=== PATIENT | female | born 1990 | race Caucasian/White ===

== ENCOUNTER 2017-07-03 21:59 | Inpatient (IN) | payer BC, MEDICAID, OTHER ==
[~2017-07-03] VITALS: Ht 154.9 cm; Wt 67.0 kg
[~2017-07-03 21:59] MED LIST: IBUP600 PO
[2017-07-03] MEDS ORDERED: VITA1000 PO (22:36)
[2017-07-03] MEDS ORDERED: MULTTAB67 PO (22:36)
[2017-07-03 23:39] LABS: AMORPHOUS SEDIMENT, URINE RARE; BACTERIA, URINE OCC /hpf; BILIRUBIN, URINE NEG (NEG); BLOOD, URINE NEG (NEG); GLUCOSE,URINE NEG (NEG); KETONE, URINE NEG (NEG); NITRITE,URINE NEG (NEG); SQUAMOUS EPITHELIAL CELL URINE 17 /hpf (0-5); URINE COLOR YELLOW (YELLW/STRAW); URINE LEUKOCYTE ESTERASE LARGE (NEG)
[2017-07-04] VITALS (56 sets, daily range): BP systolic 82–135; BP diastolic 43–92; PULSE 70–103; RESP 16–18; TEMP 97.9–98.7; O2SAT 97–99
[2017-07-04] MEDS ORDERED: LACTATED RINGER'S 1000 ML INJ 1,000 ML IV PRN (00:05)
[2017-07-04] MEDS ORDERED: ONDANSETRON HCL 4 MG/2 ML VIAL IV PUSH PRN (00:15)
[2017-07-04] MEDS ORDERED: MINERAL OIL 10 ML VIAL TOPICAL PRN (00:15)
[2017-07-04] MEDS ORDERED: OXYTOCIN 30 UNITS-500ML PREMIX 500 ML IV ONE ×2 (00:15→08:30)
[2017-07-04] MEDS ORDERED: CITRIC ACID-SODIUM CITRATE LIQ 30 ML UDC PO SCH (00:15)
[2017-07-04] MEDS ORDERED: SODIUM CHLORID 0.9% 500 ML INJ 500 ML IV PRN (00:15)
[2017-07-04] MEDS ORDERED: OXYTOCIN 30 UNITS-500ML PREMIX 500 ML IV PRN (00:15)
[2017-07-04] MEDS ORDERED: LIDOCAINE HCL 1% 50 ML VIAL I-DERMAL PRN (00:15)
[2017-07-04] MEDS ORDERED: LIDOCAINE HCL 1% 50 ML VIAL INFIL PRN (00:15)
--- NOTE | 2017-07-04 00:15 | PD ---
HPI Chief Complaint LOF Date Seen: Jul 04, 2017 Time Seen: 00:09 Travel History International Travel<30 Days: No Contact w/Intl Traveler<30Days: No Known Affected Area: No History of Present Illness HPI Pt is a 27y/o @ 38.6wks. She has PNC with HOGA. She reports a gush of fluid at 9:15pm (clear) with continued leaking. Occasional ctx. +FM. No VB. She is GBS+. Weeks Gestation: 38 Para: 2 : 4 History Past Medical History Narrative Medical "neurofibromatosis" - pt states she has never formally been dx'd but both of her brothers have it (one with [employer] involvement) and she has cutaneous fibromas so assumes she has it Obstetric History Obstetric History x2 D&C x1 Past Surgical History Narrative Surgical D&C Family History Family History: neurofibromatosis in both brothers Social History Alcohol Use: No Tobacco Use: Yes (/2 PPD) Substance Abuse: No Allergies-Medications (Allergen,Severity, Reaction): Coded Allergies: penicillin G (Unverified Allergy, Mild, 07/03/17) Home Meds Reported Medications Multiple Vitamin (Multiple Vitamin) 1 Tab, 1 TAB PO DAILY for Nutritional Supplement, TAB 0 Refills 07/03/17 Cholecalciferol (Vitamin D-1000) 1,000 Unit Tab, 4000 UNITS PO DAILY for Nutritional Supplement, #1 BOTTLE 0 Refills 07/03/17 Discontinued Scripts Ibuprofen (Motrin 600 Mg Tab) 600 Mg Tab, 600 MG PO Q6H Y for CRAMPING for 30 Days, TAB Prov:Adrienne Martinez MD, R3 12/30/15 Review of Systems Except as stated in HPI: all other systems reviewed are Neg Physical Exam Narrative General: well developed, well nourished, no acute distress HEENT: normocephalic atraumatic, extraocular movements intact, neck supple Abdomen: soft, gravid, nontender, nondistended Uterus: fundus term Extremities: full range of motion Skin: normal coloration, no rashes, no suspicious skin lesions noted Neurologic: cranial nerves 2-12 grossly intact, normal muscle tone, normal gait Psychiatric: normal mood and affect, appropriate FHTs: 130s, +accels, no decels, moderate variability, reactive [place]: irritable Cvx: 4/60/-3, large ?fibroma at anterior mons extending to R labia Data Data Vital Signs Reviewed: Yes Orders Orders Ob (2e) Additional Admit Info (07/03/17 22:46) Urinalysis - C+S If Indicated (07/03/17 23:29) Drug Screen, Random Urine (07/03/17 23:29) Urine Culture (07/03/17 22:25) Vital Signs (Adult) .ON ADMISSION (07/04/17 00:05) ^ Labor Status (07/04/17 00:05) ^ Non Stress Test (07/04/17 00:05) Pamg-1 Test .ONCE (07/04/17 00:05) Admit To Inpatient (07/04/17 ) Vital Signs (Adult) .Per protocol (07/04/17 00:05) Heart (07/04/17 00:05) Amnioinfusion (07/04/17 00:05) Urinary Catheter Management .ONCE (07/04/17 00:05) Diet Liquid (07/04/17 Breakfast) Lactated Ringer's 1000 Ml Inj (Lr 1000 M (07/04/17 00:05) Lactated Ringer's 1000 Ml Inj (Lr 1000 M (07/04/17 00:05) Sodium Chlorid 0.9% 500 Ml Inj (Ns 500 M (07/04/17 00:15) Sodium Chlor 0.9% 1000 Ml Inj (Ns 1000 M (07/04/17 00:25) Lidocaine 1% Inj (50 Ml) (Xylocaine 1% I (07/04/17 00:15) Citric Acid-Sodium Citrate Liq (Bicitra (07/04/17 00:15) Ondansetron Inj (Zofran Inj) (07/04/17 00:15) Fentanyl Inj (Fentanyl Inj) (07/04/17 00:15) Fentanyl Inj (Fentanyl Inj) (07/04/17 00:15) Penicillin G Potassium Inj (Pfizerpen-G (07/04/17 00:15) Penicillin G Potassium Inj (Pfizerpen-G (07/04/17 04:15) Complete Blood Count With Diff (07/04/17 00:05) Hold Clot (07/04/17 00:05) Abo/Rh Blood Type (07/04/17 00:05) Drug Screen, Random Urine (07/04/17 00:05) Resp Oxygen Non Rebreathe Mask (07/04/17 ) ^ Epidural / Intrathecal Infus (07/04/17 00:05) Oxytocin 30 Units-500ml Premix (Pitocin (07/04/17 00:15) Lidocaine 1% Inj (50 Ml) (Xylocaine 1% I (07/04/17 00:15) Light Mineral Oil (Muri-Lube Oil) (07/04/17 00:15) Inpatient Certification (07/04/17 ) Specimen To Be Collected PRN (07/04/17 00:05) ^ Non Stress Test (07/04/17 00:05) Response To Medication .Post New Med Administration, Reaction (07/04/17 00:05) ^ Discontinue Medication (07/04/17 00:05) Oxytocin 30 Units-500ml Premix (Pitocin (07/04/17 00:15) Group B Strep: Positive Labs Laboratory Tests Test 07/03/17 22:25 Urine Color YELLOW Urine Turbidity CLOUDY Urine pH 8.0 Urine Specific [place] 1.013 Urine Protein NEG Urine Glucose (UA) NEG Urine Ketones NEG Urine Occult Blood NEG Urine Nitrite NEG Urine Bilirubin NEG Urine Urobilinogen LESS THAN 2.0 Urine Leukocyte Esterase LARGE Urine RBC 2 Urine WBC 32 Urine Squamous Epithelial Cells 17 Urine Amorphous Sediment RARE Urine Bacteria OCC Microscopic Urinalysis Comment CULTURE INDICATED Urine Opiates Screen NEG Urine Barbiturates Screen NEG Urine Amphetamines Screen NEG Urine Benzodiazepines Screen NEG Urine Cocaine Screen NEG Urine Cannabinoids Screen NEG Date/Time Source Procedure Growth Status 07/03/17 22:25 Urine Clean Catch Urine Culture Pending Received MDM Plan 27y/o @ 38.6wks with PROM -- admit to L&D -- pitocin augmentation -- GBS+, PCN ordered (pt reports she may have an allergy since her father has a PCN allergy, but she has taken amoxicillin previously) -- CLD, epidural/jason PRN Dispo: Dr. Kaplan ([facility]) notified of pt status and plan of care. He will assume care of the pt. Courtesy orders placed. Diagnosis Diagnosis: Primary Impression: 38 weeks gestation of Additional Impressions: GBS (group B Streptococcus carrier), +RV culture, currently Neurofibromatosis Tobacco use during Thor,Ameigh Verderosa MD Jul 04, 2017 00:15
[2017-07-04] MEDS: LACTATED RINGER'S 1000 ML INJ 1,000 ML IV SCH ×3 (00:25→05:23)
[2017-07-04] MEDS ORDERED: SODIUM CHLOR 0.9% 1000 ML INJ 1,000 ML IV PRN (00:25)
[2017-07-04 00:49] LABS: AUTOMATED NEUTROPHIL # 13.3 TH/MM3 (1.8-7.7); BASOPHIL # 0.1 TH/MM3 (0-0.2); BASOPHIL % 0.4 % (0.0-2.0); EOSINOPHIL # 0.2 TH/MM3 (0-0.4); HEMOGLOBIN 11.8 GM/DL (11.6-15.3); LYMPH % 16.7 % (9.0-44.0); LYMPHOCYTE # 2.9 TH/MM3 (1.0-4.8); MEAN CELL VOLUME 86.7 FL (80.0-100.0); MEAN CORPUSCULAR HEMOGLOBIN 29.3 PG (27.0-34.0); MEAN CORPUSCULAR HGB CONC 33.8 % (32.0-36.0); MEAN PLATELET VOLUME 8.1 FL (7.0-11.0); MONO % 6.2 % (0.0-8.0); MONOCYTE # 1.1 TH/MM3 (0-0.9); NEUT % 75.7 % (16.0-70.0); PLATELET COUNT 209 TH/MM3 (150-450); RED BLOOD COUNT 4.03 MIL/MM3 (4.00-5.30); RED CELL DISTRIBUTION WIDTH 14.4 % (11.6-17.2); WHITE BLOOD COUNT 17.6 TH/MM3 (4.0-11.0)
[2017-07-04] MEDS ORDERED: PENICILLIN G POTASSIUM INJ 5,000,000 UNITS in SODIUM CHLORIDE 0.9% INJ 100 ML IV ONE (01:00)
[2017-07-04] MEDS ORDERED: fentaNYL 2MCG-BUPIV 0.125% INJ 100 ML ONE (02:24)
[2017-07-04] MEDS ORDERED: PENICILLIN G POTASSIUM INJ 2,500,000 UNITS in SODIUM CHLORIDE 0.9% INJ 100 ML IV SCH (05:00)
--- NOTE | 2017-07-04 07:51 | PD.OB.DELI ---
Weeks gestation: 38 Gest age assessed date: Jul 03, 2017 Pt started active labor?: Yes Active labor start date: Jul 03, 2017 Medical induction of labor?: No Artificial rupture of membrane: No Anesthesia: Epidural Episiotomy: None Vaginal Delivery: Normal Nuchal Cord: None Delayed cord clamping (45 sec): Yes Infant: Female Delivery date: Jul 04, 2017 Delivery time: 07:20 One Minute : 9 Five Minute : 9 Weight: 6/15 Placenta: Spontaneous delivery, Intact, 3 vessel cord Laceration: 1 deg Estimated blood loss: 300 Additional Information Precipitous delivery of Chasity in the bag intact while I was putting on my gloves. No episiotomy but two small bilateral periurethral first degree tears repaired with 5-0 vicryl Large right labial fibroma noted. Sisi Kaplan MD Jul 04, 2017 07:51
[2017-07-04] MEDS ORDERED: SODIUM CHLORIDE 0.9% FLUSH 10 ML FLUSH IV FLUSH PRN (08:00)
[2017-07-04] MEDS ORDERED: WITCH HAZEL 50%/GLYCERIN 12.5% 40 PAD JAR TOPICAL PRN (08:00)
[2017-07-04] MEDS ORDERED: DOCUSATE SODIUM 50 MG/SENNA 8.6 MG TAB PO PRN (08:00)
[2017-07-04] MEDS ORDERED: IBUPROFEN 800 MG TAB PO PRN (08:00)
[2017-07-04] MEDS ORDERED: ONDANSETRON ODT 4 MG TAB PO PRN (08:00)
[2017-07-04] MEDS ORDERED: BENZOCAINE 20% TOPICAL SPRAY 60 ML CAN TOPICAL PRN (08:00)
[2017-07-04] MEDS ORDERED: ALUMINUM/MAGNESIUM/SIMETH 30 ML CUP PO PRN (08:00)
[2017-07-04] MEDS ORDERED: ACETAMINOPHEN 325 MG TAB PO PRN (08:00)
[2017-07-04] MEDS ORDERED: ZOLPIDEM TARTRATE 5 MG TAB PO PRN (08:00)
[2017-07-04] MEDS ORDERED: OXYTOCIN 30 UNITS-500ML PREMIX 500 ML IV SCH (09:00)
[2017-07-04] MEDS ORDERED: SODIUM CHLORIDE 0.9% FLUSH 10 ML FLUSH IV FLUSH SCH (09:00)
[2017-07-04] MEDS: MULTIVITAMIN TAB PO SCH (09:44)
[2017-07-04] MEDS ORDERED: KETOROLAC TROMETHAMINE 10 MG TAB PO PRN (11:00)
[2017-07-04] MEDS ORDERED: DIPHTH/TETANUS/ACEL PERTUSSIS (BOOSTER) 0.5 ML VIAL/PFS IM ONE (16:00)
[2017-07-04] MEDS ORDERED: MEASLES, MUMPS, RUBELLA VACCINE 0.5 ML VIAL SQ ONE (16:00)
[2017-07-04 17:29] LABS: CREATININE 0.45 MG/DL (0.50-1.00)
[2017-07-04] MEDS ORDERED: IOHEXOL 350 MG/ML 10 ML VIAL (for RAD DIAG) IVCONTRAST ONE (19:18)
--- NOTE | 2017-07-04 21:57 | RADRPT ---
EXAM DATE/TIME: 07/04/2017 19:14 [facility] COMPARISON: No previous studies available for comparison. INDICATIONS : Cephalgia. IV CONTRAST: 92 cc Omnipaque 350 (iohexol) IV RADIATION DOSE: 36.46 CTDIvol (mGy) MEDICAL HISTORY : Migraine SURGICAL HISTORY : None. ENCOUNTER: Initial ACUITY: 1 day PAIN SCALE: 5/10 LOCATION: Bilateral cranial TECHNIQUE: Multiple contiguous axial images were obtained of the head. Using automated exposure control and adj ustment of the mA and/or kV according to patient size, radiation dose was kept as low as reasonably a chievable to obtain optimal diagnostic quality images. DICOM format image data is available electro nically for review and comparison. FINDINGS: CEREBRUM: The ventricles are normal for age. No evidence of midline shift, cerebral edema or blood products. No extra-axial fluid collections are seen. POSTERIOR FOSSA: The cerebellum and brainstem are intact. The 4th ventricle is midline. The cerebellar pontine angle is unremarkable. EXTRACRANIAL: The visualized portion of the orbits is intact. SKULL: The calvaria is intact. No evidence of skull fracture. POST CONTRAST: No abnormal areas of parenchymal or dural enhancement. No evidence of blood-brain barrier breakdown. CONCLUSION: Normal examination. Prem Allen MD on July 04, 2017 at 21:55 Board Certified Radiologist. This report was verified electronically.
[2017-07-04] MEDS: FAMOTIDINE 20 MG TAB PO SCH (23:38)
[2017-07-05 07:30] VITALS: BP 108/71; PULSE 69; RESP 16; TEMP 97.9; O2SAT 99
--- NOTE | 2017-07-05 07:31 | HHI.OB ---
Subjective Post Day: 2 Remarks unremarkable post course no complaints Objective Vitals/I&O Vital Signs Date Time Temp Pulse Resp B/P (MAP) Pulse Ox O2 Delivery O2 Flow Rate FiO2 07/04/17 20:01 98.1 07/04/17 20:01 18 97 07/04/17 20:00 70 123/67 (85) 07/04/17 17:12 82 109/61 (77) 07/04/17 17:12 18 07/04/17 12:30 99 07/04/17 12:00 96/68 (77) 07/04/17 12:00 97.9 96 16 07/04/17 08:52 18 07/04/17 08:45 84 111/92 (98) 07/04/17 08:34 18 07/04/17 08:31 88 101/60 (74) 07/04/17 08:16 76 124/80 (95) 07/04/17 08:15 18 07/04/17 08:00 97.9 18 07/04/17 08:00 95 112/63 (79) 07/04/17 07:44 18 07/04/17 07:31 101 117/72 (87) Objective Remarks GENERAL: Well-nourished, well-developed patient. CARDIOVASCULAR: Regular rate and rhythm without murmurs, gallops, or rubs. RESPIRATORY: Breath sounds equal bilaterally. No accessory muscle use. ABDOMEN/GI: Abdomen soft, non-tender. Fundus: Firm, non-tender at umbilicus. GENITOURINARY: Light to moderate bleeding. EXTREMITIES: No cyanosis or edema, non-tender, without signs of DVT. Medications and IVs Current Medications Medications (Trade) Dose Ordered Sig/Oclin Route Start Time Stop Time Status Last Admin (NS Flush) 2 ml BID IV FLUSH 07/04/17 09:00 (NS Flush) 2 ml UNSCH PRN IV FLUSH 07/04/17 08:00 (Americaine 20% Top Spr) 1 spray Q4H PRN TOPICAL 07/04/17 08:00 (Tucks Pads) 1 applic QID PRN TOPICAL 07/04/17 08:00 (Lali-Colace) 2 tab Q12H PRN PO 07/04/17 08:00 (Ambien) 5 mg HS PRN PO 07/04/17 08:00 (Mag-Al Plus Susp Liq) 15 ml Q8H PRN PO 07/04/17 08:00 (Zofran Odt) 4 mg Q6H PRN PO 07/04/17 08:00 (Theragran) 1 tab DAILY PO 07/04/17 09:00 07/04/17 09:44 (Toradol) 10 mg Q6H PRN PO 07/04/17 11:00 07/09/17 10:59 07/04/17 15:08 (Roxicodone) 5 mg Q6H PRN PO 07/04/17 11:00 07/05/17 02:23 (Pepcid) 20 mg BID PO 07/04/17 21:00 07/04/17 23:38 Assessment/Plan Problem List: (1) Vaginal delivery ICD Codes: O80 - Encounter for full-term uncomplicated delivery Status: Acute (2) Neurofibromatosis ICD Codes: Q85.00 - Neurofibromatosis, unspecified Status: Acute (3) GBS (group B Streptococcus carrier), +RV culture, currently ICD Codes: O99.820 - Streptococcus B carrier state complicating Status: Acute (4) Tobacco use during ICD Codes: O99.330 - Smoking (tobacco) complicating , unspecified trimester Status: Acute Assessment and Plan normal CT! can go home RTO 6 weeks Radha Pompa MD Jul 05, 2017 07:31
--- NOTE | 2017-07-05 07:33 | HHI.DCPOC ---
Discharge Care Plan Report Symptoms to Your Doctor -Temperature above 100.5 degrees -Redness, of incision or excessive or foul smelling drainage -Unusual pain or calf pain -Increased vaginal bleeding -Painful or difficulty urinating -Feelings of extreme sadness or anxiety after 2 weeks Goals to Promote Your Health * To prevent worsening of your condition and complications * To maintain your health at the optimal level Directions to Meet Your Goals Take your medications as prescribed Follow your dietary instruction Follow activity as directed Ensure plenty of rest for recovery Drink fluids for hydration Keep your appointments as scheduled Take your immunizations and boosters as scheduled If your symptoms worsen call your PCP, if no PCP go to Urgent Care Center or Emergency Room Smoking is Dangerous to Your Health. Avoid second hand smoke Call the 24-hour crisis hotline for domestic abuse at Radha Pompa MD Jul 05, 2017 07:33
[2017-07-05] MEDS: FAMOTIDINE 20 MG TAB PO SCH (10:37)
[2017-07-05] MEDS: MULTIVITAMIN TAB PO SCH (10:38)
== END 2017-07-05 11:58 | disposition home or self-care (01) | DRG 775 ==
LOC: HOBED 21:59 → H2EB 22:49 → H1EA 07-04 09:04
PROVIDERS: ADMIT Obstetrics & Gynecology; ATTEND Obstetrics & Gynecology
PROC: 10E0XZZ Delivery of Products of Conception, External Approach (ICD-10-PCS; principal; 2017-07-04)
PROC: 0HQ9XZZ Repair Perineum Skin, External Approach (ICD-10-PCS; 2017-07-04)
PROC: 3E0R3BZ Introduction of Anesthetic Agent into Spinal Canal, Percutaneous Approach (ICD-10-PCS; 2017-07-04)
PROC: 00HU33Z Insertion of Infusion Device into Spinal Canal, Percutaneous Approach (ICD-10-PCS; 2017-07-04)
DX: O42.02 Full-term premature rupture of membranes, onset of labor within 24 hours of rupture (principal); O99.354 Diseases of the nervous system complicating childbirth; Q85.00 Neurofibromatosis, unspecified; O99.334 Smoking (tobacco) complicating childbirth; F17.210 Nicotine dependence, cigarettes, uncomplicated; O99.824 Streptococcus B carrier state complicating childbirth; O62.3 Precipitate labor; O71.82 Other specified trauma to perineum and vulva; Z37.0 Single live birth; Z3A.38 38 weeks gestation of pregnancy
CPT/HCPCS: 70470; 80307; 81001; 82565; 84112; 85025; 86900; 86901; 87086; J2540; J2590; J7120; Q9967